=== PATIENT | female | born 1930 | race Caucasian/White ===

== ENCOUNTER 2018-10-21 13:00 | Outpatient (RCR) | payer MEDICARE, BC | END 2018-10-26 15:43 | disposition home or self-care (01) | LOC: MKS.ESL.PT 13:00 | DX: R26.9 Unspecified abnormalities of gait and mobility (principal); Z90.89 Acquired absence of other organs ==

== ENCOUNTER 2019-11-17 15:41 | Inpatient (IN) | payer MEDICARE, BC ==
[2019-11-17] VITALS (33 sets, daily range): BP systolic 113; BP diastolic 64; PULSE 95; TEMP 97.2; O2SAT 93–99
[~2019-11-17] VITALS: Ht 167.6 cm; Wt 95.2 kg
[2019-11-17 16:11] LABS: MEAN CELL VOLUME 100 fl (80.0-100.0); MEAN CORPUSCULAR HEMOGLOBIN 33 pg (27.0-31.0); MEAN CORPUSCULAR HGB CONC 33 g/dl (33.0-37.0); MEAN PLATELET VOLUME 10.2 fl (7.4-10.4); PLATELET COUNT 122 K/mm3 (130-400); RED BLOOD COUNT 3.67 M/mm3 (4.10-5.30); REDCELL DISTRIBUTION WIDTH-CV 19.5 % (11.5-14.5)
[2019-11-17 16:13] LABS: INR 1.1 (0.8-3.0)
[2019-11-17 16:16] LABS: PARTIAL THROMBOPLASTIN TIME 26.5 SECONDS (26.0-37.0)
[2019-11-17 16:18] LABS: ALBUMIN 3.4 gm/dL (3.5-5.0); BILIRUBIN,TOTAL 0.6 mg/dL (0.0-1.0); CALCIUM 10.2 mg/dL (8.4-10.2); CREATININE, serum 1.51 (0.52-1.25); POTASSIUM 4.2 mmol/L (3.4-5.0); TOTAL PROTEIN 6.3 gm/dL (6.4-8.2)
[2019-11-17 16:37] LABS: TROPONIN-I 0.055 ng/mL (0.000-0.035)
[2019-11-17 16:48] LABS: TSH w REFLEX 2.67 uIU/mL (0.465-4.680)
[2019-11-17 16:51] LABS: HEMATOCRIT 36.6 % (37.0-47.0)
[2019-11-17 18:59] LABS: NEUTROPHILS 99 % (42.0-75.2)
[2019-11-17 19:00] LABS: HYPOCHROMIA 1+; PLATELET ESTIMATE DECREASED (NORMAL)
[2019-11-17 19:01] LABS: ANISOCYTOSIS 2+
[2019-11-17] MEDS ORDERED: NORVASC 5MG5 MG/TAB PO (19:28)
[2019-11-17] MEDS ORDERED: LASIX 20MG TABL20 MG PO (19:29)
[2019-11-17] MEDS ORDERED: HYZAAR 25 MG-101 TAB PO (19:29)
[2019-11-17] MEDS ORDERED: PREDNISONE20 MG PO (19:30)
[2019-11-17 20:36] LABS: ARTERIAL BLD GAS O2 SATURATION 96.1 % (92-100); ARTERIAL BLD GAS TCO2 CT 25.2; ARTERIAL BLOOD GAS BASE EXCESS 0.7 (-2-2); ARTERIAL BLOOD GAS HCO3 24.1 meq/L (22-26); ARTERIAL BLOOD GAS PCO2 34.5 mmHg (35-45); ARTERIAL BLOOD GAS PO2 83.2 mmHg (80-100); ARTERIAL BLOOD GAS pH 7.46 (7.35-7.45)
--- NOTE | 2019-11-17 21:30 | NUR ---
RECEIVED REPORT FROM MAYANK CEBALLOS IN ER. AWAITING ARRIVAL OF PT TO ICU 7.
[2019-11-17 21:57] LABS: C-REACTIVE PROTEIN 5.1 mg/dL (0.0-0.9); MAGNESIUM 1.6 mg/dL (1.6-2.3); PHOSPHOROUS 4.7 mg/dL (2.5-4.5)
[2019-11-17 21:57] LABS: COLLECTION METHOD CLEAN CATCH
--- NOTE | 2019-11-17 22:05 | NUR ---
PT ARRIVES TO ICU 7 VIA STRETCHER ON 1L VIA NC. PT ASSISTED TO ICU BED AND PLACED ON BEDSIDE CONTINUOUS MONITOR. EXTERNAL FEMALE CATHETER IN PLACE AND HOOKED UP TO LOW CONTINUOUS SUCTION. VSS. CALL LIGHT SYSTEM EDUCATION GIVEN, VERBALIZED UNDERSTANDING. SEE GTT FLOWSHEET.
[2019-11-17 22:06] LABS: MUCOUS Present /lpf; PH 6 (5-8); SQUAMOUS EPITHELIAL 0-2 /hpf; URINE APPEARANCE Clear; URINE BACTERIA Rare /hpf; URINE BILIRUBIN Negative (NEGATIVE); URINE BLOOD Negative (NEGATIVE); URINE COLOR Straw; URINE GLUCOSE Negative (NEGATIVE); URINE KETONE Negative (NEGATIVE); URINE LEUKOCYTE ESTERASE Trace (NEGATIVE); URINE NITRATE Negative (NEGATIVE); URINE PROTEIN(semi-quant) Negative (NEGATIVE); URINE RBC None Seen /hpf; URINE UROBILINOGEN Negative (NEGATIVE)
[2019-11-17 22:22] LABS: ARTERIAL BLD GAS O2 SATURATION 93.4 % (92-100); ARTERIAL BLD GAS TCO2 CT 27.1; ARTERIAL BLOOD GAS BASE EXCESS 2.9 (-2-2); ARTERIAL BLOOD GAS HCO3 26.1 meq/L (22-26); ARTERIAL BLOOD GAS PO2 66.7 mmHg (80-100); ARTERIAL BLOOD GAS pH 7.49 (7.35-7.45)
--- NOTE | 2019-11-17 22:41 | NUR ---
NOTIFIED MEÑO GARCIA OF ABG RESULTS, NEW ORDERS RECEIVED. RT TO BEDSIDE AND PLACES PT ON 5L NC. CALL LIGHT WITHIN REACH.
--- NOTE | 2019-11-17 23:15 | NUR ---
MEÑO GARCIA TO BEDSIDE FOR ASSESSMENT AND TO DISCUSS POC WITH PT.
[2019-11-18] VITALS (654 sets, daily range): BP systolic 99–114; BP diastolic 52–64; PULSE 85–105; TEMP 97.9–98.2; O2SAT 90–100
--- NOTE | 2019-11-18 02:00 | NUR ---
MEÑO GARCIA NOTIFIED OF HEPXA LEVEL AND TROPONIN TREND, CARDIOLOGY CONSULT ALREADY IN PLACE TO CALL IN AM. WILL FOLLOW PROTOCOL FOR HEPARIN GTT.
[2019-11-18 02:11] LABS: ARTERIAL BLD GAS O2 SATURATION 96.1 % (92-100); ARTERIAL BLD GAS TCO2 CT 27.7; ARTERIAL BLOOD GAS BASE EXCESS 3.2 (-2-2); ARTERIAL BLOOD GAS HCO3 26.6 meq/L (22-26); ARTERIAL BLOOD GAS PCO2 36.3 mmHg (35-45); ARTERIAL BLOOD GAS PO2 82.1 mmHg (80-100); ARTERIAL BLOOD GAS pH 7.48 (7.35-7.45)
[2019-11-18 03:53] LABS: HEMOGLOBIN 10.9 g/dl (12.5-16.0); MEAN CELL VOLUME 103 fl (80.0-100.0); MEAN CORPUSCULAR HEMOGLOBIN 32 pg (27.0-31.0); MEAN CORPUSCULAR HGB CONC 31 g/dl (33.0-37.0); MEAN PLATELET VOLUME 9.8 fl (7.4-10.4); PLATELET COUNT 97 K/mm3 (130-400); RED BLOOD COUNT 3.36 M/mm3 (4.10-5.30); REDCELL DISTRIBUTION WIDTH-CV 19.6 % (11.5-14.5)
[2019-11-18 04:02] LABS: CALCIUM 9.1 mg/dL (8.4-10.2); CHOLESTEROL RISK RATIO 2.3; CREATININE, serum 1.09 (0.52-1.25); POTASSIUM 3.4 mmol/L (3.4-5.0)
[2019-11-18 04:06] LABS: PARTIAL THROMBOPLASTIN TIME 87.5 SECONDS (26.0-37.0)
[2019-11-18 04:10] LABS: HEMATOCRIT 34.7 % (37.0-47.0)
[2019-11-18 04:15] LABS: TROPONIN-I 0.073 ng/mL (0.000-0.035)
[2019-11-18 05:17] LABS: BAND 12 % (0-10); LYMPHOCYTE 10 % (20.0-51.0); METAMYELOCYTE 2 % (0-0); NEUTROPHILS 75 % (42.0-75.2)
[2019-11-18 05:18] LABS: PLATELET ESTIMATE DECREASED (NORMAL)
[2019-11-18 05:19] LABS: ANISOCYTOSIS 2+; HYPOCHROMIA 2+; TEAR DROP CELLS 1+
--- NOTE | 2019-11-18 07:15 | NUR ---
Bedside report received from MAYANK Robbins.
--- NOTE | 2019-11-18 09:45 | NUR ---
Report given to MAYANK Devi
--- NOTE | 2019-11-18 11:54 | NUR ---
Patient is currently in isolation and being tested for respiratory virus's. Worker contacted Gunnar Crowder #[phone] , patient's spouse of three years. Patient has two son's, Bin and Yohan, that live local and are supportive. Gunnar states that he and patient's family are very well aquainted and are all supportive of one another. Gunnar states that patient has advance directives and he will attempt to locate and bring up to the hospital. Patient is normally independent with her activities of daily living and her primary care provider is Dr Wong. Gunnar states that patient's goal is to return home.
--- NOTE | 2019-11-18 19:20 | NUR ---
Bedside report received from MAYANK Devi
--- NOTE | 2019-11-18 20:00 | NUR ---
Patient resting in bed watching TV. She is A+Ox4. No complaints of pain. Assessment complete, see shift assessment for details. Patient has a purewick in place, adjusted for comfort. Tubing checked. Patient currently has no needs. Will continue to monitor. Call light within reach.
[2019-11-19] VITALS (319 sets, daily range): BP systolic 94–113; BP diastolic 44–85; PULSE 75–97; TEMP 97.6–99; O2SAT 83–97
[2019-11-19 05:24] LABS: MEAN CELL VOLUME 101 fl (80.0-100.0); MEAN CORPUSCULAR HEMOGLOBIN 32 pg (27.0-31.0); MEAN CORPUSCULAR HGB CONC 32 g/dl (33.0-37.0); MEAN PLATELET VOLUME 10.4 fl (7.4-10.4); PLATELET COUNT 91 K/mm3 (130-400); RED BLOOD COUNT 3.09 M/mm3 (4.10-5.30); REDCELL DISTRIBUTION WIDTH-CV 19.5 % (11.5-14.5)
[2019-11-19 05:27] LABS: HEMATOCRIT 31.3 % (37.0-47.0)
[2019-11-19 05:31] LABS: CALCIUM 8.2 mg/dL (8.4-10.2); CREATININE, serum 0.96 (0.52-1.25); POTASSIUM 3.4 mmol/L (3.4-5.0)
[2019-11-19 05:44] LABS: ANISOCYTOSIS 2+; BAND 21 % (0-10); LYMPHOCYTE 8 % (20.0-51.0); NEUTROPHILS 69 % (42.0-75.2); PLATELET ESTIMATE DECREASED (NORMAL)
[2019-11-19 05:45] LABS: HYPOCHROMIA 1+; TEAR DROP CELLS 1+
--- NOTE | 2019-11-19 06:00 | NUR ---
Patient has been resting well throughout the night. Patient states she is feeling much better this morning. O2 has been titrated down to 1L NC and maintaining O2 saturations with that. Patient does desaturate with activity and slowly comes back up. Patient has had no pain. Purewick catheter was changed and pericare provided. Patient requests some orange juice this morning and would like to take the oral potassium replacement even with teaching on her fluid restriction. Patient has no further needs at this time. Will continue to monitor. Call light within reach.
--- NOTE | 2019-11-19 07:30 | NUR ---
Bedside report given to MAYANK oRdríguez
--- NOTE | 2019-11-19 16:39 | NUR ---
Pt and updated on transfer. Report called to Luz Maria TALLEY all quesitons answered. Pt taken to room 311 by wheelchair, accompanined.
--- NOTE | 2019-11-19 18:03 | NUR ---
Pt admission assessment completed, reviewed allergies and Meds on JUL. Pt is alert and oriented, roomair to 1 Liter. PICC line, both lumens has blood return and flushed without complications. No N/V/D, pain, numbness, tingling, SOB. Has +3 edema on bilateral lower legs. No further needs at this time.
--- NOTE | 2019-11-19 21:00 | NUR ---
Resting in bed. Assessment complete. Right lower lobe dimished otherwise clear. Heart sounds normal. Bowels active x4. Pulses present throughout. Bilateral lower leg edema +3. PICC to right upper flushed without complications. Denies pain. Denies needs at this time. Call light in reach.
--- NOTE | 2019-11-19 23:24 | NUR ---
Resting in bed. Denies needs. Denies pain. Call light in reach.
[2019-11-20 03:39] VITALS: BP 114/49; PULSE 91; TEMP 98.3
--- NOTE | 2019-11-20 04:08 | NUR ---
Resting in bed. Denies needs. Denies pain. Call light in reach.
--- NOTE | 2019-11-20 06:18 | NUR ---
Patient had uneventful night. Resting in bed this AM. Call light in reach.
[2019-11-20 06:28] LABS: MEAN CELL VOLUME 101 fl (80.0-100.0); MEAN CORPUSCULAR HGB CONC 32 g/dl (33.0-37.0); MEAN PLATELET VOLUME 10.2 fl (7.4-10.4); PLATELET COUNT 96 K/mm3 (130-400); RED BLOOD COUNT 3.05 M/mm3 (4.10-5.30); REDCELL DISTRIBUTION WIDTH-CV 19.4 % (11.5-14.5)
[2019-11-20 06:40] LABS: HEMATOCRIT 30.8 % (37.0-47.0); HEMOGLOBIN 9.7 g/dl (12.5-16.0); MEAN CORPUSCULAR HEMOGLOBIN 32 pg (27.0-31.0)
[2019-11-20 06:53] LABS: CALCIUM 7.9 mg/dL (8.4-10.2); CREATININE, serum 0.89 (0.52-1.25); POTASSIUM 3.8 mmol/L (3.4-5.0)
--- NOTE | 2019-11-20 06:55 | NUR ---
Report given to MAYANK Loera
[2019-11-20 08:15] LABS: BAND 2 % (0-10); EOSINOPHIL 2 % (0-4); LYMPHOCYTE 11 % (20.0-51.0); NEUTROPHILS 78 % (42.0-75.2)
[2019-11-20 08:16] LABS: ANISOCYTOSIS 1+; PLATELET ESTIMATE DECREASED (NORMAL)
[2019-11-20 08:20] VITALS: BP 105/52; PULSE 90; TEMP 98.5
[2019-11-20 11:15] VITALS: BP 131/56; PULSE 103; TEMP 97.6
[2019-11-20 16:44] VITALS: BP 105/59; PULSE 93; TEMP 97.7
--- NOTE | 2019-11-20 19:04 | NUR ---
Pt assessment completed and charted, alert, oriented, on 3l oxygen. Meds provided as per JUL. PICC line blood returned and flushed with no complications. No N/V/D, pain, numbness, tingling, SOB. No further needs at this time.
[2019-11-20 19:21] VITALS: BP 110/59; PULSE 91; TEMP 97.8
--- NOTE | 2019-11-20 19:35 | NUR ---
Received report from Luz Maria. Seen patient awake, lying in bed. at the bedside. She's on O2 at 2lpm via NC. With right upper arm PICC. Denies pain. Denies shortness of breath. Call light within reach.
[2019-11-20 23:46] VITALS: BP 102/56; PULSE 86; TEMP 98.1
[2019-11-21 03:38] VITALS: BP 108/57; PULSE 86; TEMP 99.3
--- NOTE | 2019-11-21 04:00 | NUR ---
Resting in bed. Denies pain. Assisted patient in the bathroom.
--- NOTE | 2019-11-21 06:30 | NUR ---
Patient had an uneventful night. Denies pain. Not in distress. Assisted in the bathroom to urinate. Will endorse to day shift nurse.
[2019-11-21 07:37] LABS: HEMOGLOBIN 10.4 g/dl (12.5-16.0); MEAN CELL VOLUME 102 fl (80.0-100.0); MEAN CORPUSCULAR HEMOGLOBIN 33 pg (27.0-31.0); MEAN CORPUSCULAR HGB CONC 33 g/dl (33.0-37.0); MEAN PLATELET VOLUME 10.2 fl (7.4-10.4); PLATELET COUNT 102 K/mm3 (130-400); RED BLOOD COUNT 3.11 M/mm3 (4.10-5.30); REDCELL DISTRIBUTION WIDTH-CV 19.7 % (11.5-14.5)
[2019-11-21 07:49] VITALS: BP 117/54; PULSE 103; TEMP 97.6
[2019-11-21 07:58] LABS: ALBUMIN 2.9 gm/dL (3.5-5.0); BILIRUBIN,TOTAL 0.7 mg/dL (0.0-1.0); CALCIUM 8.1 mg/dL (8.4-10.2); CREATININE, serum 0.92 (0.52-1.25); POTASSIUM 3.8 mmol/L (3.4-5.0); TOTAL PROTEIN 5.7 gm/dL (6.4-8.2)
[2019-11-21 08:12] LABS: HEMATOCRIT 31.7 % (37.0-47.0)
[2019-11-21 09:56] LABS: BAND 9 % (0-10); EOSINOPHIL 1 % (0-4); LYMPHOCYTE 11 % (20.0-51.0); MYELOCYTE 1 % (0-0); NEUTROPHILS 76 % (42.0-75.2)
[2019-11-21 10:00] LABS: HYPOCHROMIA 1+; MICROCYTOSIS 1+
[2019-11-21 10:01] LABS: ANISOCYTOSIS 1+
[2019-11-21 10:02] LABS: PLATELET ESTIMATE DECREASED (NORMAL)
[2019-11-21 11:21] VITALS: BP 117/52; PULSE 97; TEMP 97.5
--- NOTE | 2019-11-21 11:38 | NUR ---
PATIENT NEEDS 2LPM AT REST AND 4LPM DURING EXERTION.
[2019-11-21] MEDS ORDERED: ASPIRIN E.C. 8181 MG PO (13:31)
[2019-11-21] MEDS ORDERED: ELIQUIS 5MG PO (13:31)
[2019-11-21] MEDS ORDERED: LASIX 40MG TABL40 MG PO (13:32)
[2019-11-21] MEDS ORDERED: CLEOCIN HCL300 MG PO (13:48)
--- NOTE | 2019-11-21 14:02 | NUR ---
Investigator Fraud attended clinical rounds with the team. Patient will discharge home today and Home Health is recommended. [facility]HOU met with patient and her , Gunnar and presented Medicare.gov list of agencies that serve [place]. Patient selected [facility]. ZHOU contacted Lynda at [facility] and faxed referral. Lynda advised that they can accept referral. Patient also qualifies for home oxygen and would like to use [facility]. [facility]HOU faxed order for oxygen, facesheet, history and physical, and RT assessment to Xiao at [facility]. [facility] will deliver oxygen up to patient's room this afternoon. ZHOU faxed discharge orders to Lynda at [facility]. No additional needs at this time.
--- NOTE | 2019-11-21 19:37 | NUR ---
Patient is alert and oriented. Denies any pain. patient have one episode of hyperglycemia with BG of 211, Administered 6U of insulin. On 2L of O2. Patient was discharged home with Portable Oxygen, future appointment, face to face Home health order, and need home medication. PICC line discontinued by Radha Charge nurse. drove her home.
== END 2019-11-21 17:00 | disposition home or self-care (01) | DRG 280 ==
LOC: COL.ER 15:41 → ICU 18:28 → MEDICAL 11-19 17:14
PROVIDERS: Family Medicine; Internal Medicine Infectious Disease; Nurse Practitioner Family; Physician Assistant; ADMIT Internal Medicine
DX: I13.0 Hypertensive heart and chronic kidney disease with heart failure and stage 1 through stage 4 chronic kidney disease, or unspecified chronic kidney disease (principal); I26.99 Other pulmonary embolism without acute cor pulmonale; I21.A1 Myocardial infarction type 2; J96.01 Acute respiratory failure with hypoxia; I50.31 Acute diastolic (congestive) heart failure; N17.9 Acute kidney failure, unspecified; D69.3 Immune thrombocytopenic purpura; R65.10 Systemic inflammatory response syndrome (SIRS) of non-infectious origin without acute organ dysfunction; Z66 Do not resuscitate; N18.9 Chronic kidney disease, unspecified; R73.9 Hyperglycemia, unspecified; E83.52 Hypercalcemia; D64.9 Anemia, unspecified; T45.1X5A Adverse effect of antineoplastic and immunosuppressive drugs, initial encounter; I27.20 Pulmonary hypertension, unspecified; Z20.828 Contact with and (suspected) exposure to other viral communicable diseases; Z88.2 Allergy status to sulfonamides
CPT/HCPCS: 99223-AI; 99232-AI; 99233-AI; 99239; C1751; J0456; J0692; J1644; J1815; J1940; J3475; J7040; J7050; J7512; Q9967

== ENCOUNTER → 2020-03-12 | Outpatient (CLI) | payer MEDICARE, BC ==
[~2020-03-12] MED LIST: ASPIRIN E.C. 8181 MG PO; CLEOCIN HCL300 MG PO; ELIQUIS 5MG PO; HYZAAR 25 MG-101 TAB PO; LASIX 20MG TABL20 MG PO; LASIX 40MG TABL40 MG PO; NORVASC 5MG5 MG/TAB PO; PREDNISONE20 MG PO
== END ==
LOC: COL.VAS 12:14
DX: I27.20 Pulmonary hypertension, unspecified (principal); I26.99 Other pulmonary embolism without acute cor pulmonale; I08.0 Rheumatic disorders of both mitral and aortic valves
CPT/HCPCS: A9540; A9567